=== PATIENT | male | born 1955 | race Caucasian/White ===

== ENCOUNTER 2017-11-26 07:45 | Day surgery (SDC) | payer OTHER ==
[2017-11-26] MEDS ORDERED: ATROPINE 1 MG/10 ML SYRINGE (10:47)
[2017-11-26] MEDS ORDERED: FENTAnyl 50 MCG/ML VIAL (10:47)
[2017-11-26] MEDS ORDERED: MIDAZOLAM 1 MG/ML 2 ML INJ (10:47)
== END 2017-11-26 11:08 | disposition home or self-care (01) ==
LOC: GIL 07:45
DX: Z12.11 Encounter for screening for malignant neoplasm of colon (principal); D12.4 Benign neoplasm of descending colon
CPT/HCPCS: 45380; 88305